=== PATIENT | male | born 1950 | race Caucasian/White ===

== ENCOUNTER → 2017-08-13 | Outpatient (CLI) | payer MEDICARE ==
[~2017-08-13] MED LIST: REGADENOSON 0.4 MG/5 ML SYRINGE ONE
== END ==
LOC: RAD 10:41
PROVIDERS: ATTEND Internal Medicine Cardiovascular Disease
DX: I25.119 Atherosclerotic heart disease of native coronary artery with unspecified angina pectoris (principal); I10 Essential (primary) hypertension; I63.9 Cerebral infarction, unspecified
CPT/HCPCS: 78452; 93017; A9502; J2785

== ENCOUNTER 2017-09-13 09:29 | Emergency (ER) | payer MEDICARE ==
[~2017-09-13] VITALS: Ht 203.2 cm; Wt 111.0 kg
[2017-09-13] MEDS ORDERED: HYDR-3237 PO (10:02)
[2017-09-13] MEDS ORDERED: ALBU2.5V11 NEB (10:02)
[2017-09-13] MEDS ORDERED: PRAS10TA4 PO (10:02)
[2017-09-13] MEDS ORDERED: LOSA1TAB19 PO (10:02)
[2017-09-13] MEDS ORDERED: LEVO200T5 PO (10:02)
[2017-09-13] MEDS ORDERED: ATOR40TA PO (10:02)
[2017-09-13] MEDS ORDERED: GABA300C10 PO (10:02)
[2017-09-13] MEDS ORDERED: OMEP40CA6 PO (10:02)
[2017-09-13] MEDS ORDERED: NITR0.6T4 SL (10:03)
[2017-09-13] MEDS ORDERED: ASPI-515 PO (10:03)
[2017-09-13] MEDS ORDERED: METO25TA35 PO (10:03)
[2017-09-13] MEDS ORDERED: SODIUM CHLORIDE 0.9% 1,000ML IVBOLUS ONE (10:30)
[2017-09-13] MEDS ORDERED: FAMOTIDINE 20 MG/2 ML IVP ONE (10:30)
[2017-09-13] MEDS ORDERED: ONDANSETRON 2MG/ML, 2ML IVPush ONE (10:30)
[2017-09-13] MEDS ORDERED: SODIUM CHLORIDE FLUSH 10ML SYR IVF ONE (10:30)
[2017-09-13 10:36] LABS: BASOPHILS # (AUTO) 0.02 x10^3/uL (0-0.1); BASOPHILS % (AUTO) 0 % (0-1); EOSINOPHILS # (AUTO) 0.51 x10^3/uL (0-0.4); EOSINOPHILS % (AUTO) 6 % (1-7); LYMPHOCYTES # (AUTO) 1.65 x10^3/uL (1-3.4); LYMPHOCYTES % (AUTO) 20 % (22-44); MD NO; MEAN CORPUSCULAR HEMOGLOBIN 31.6 pg (27.5-34.5); MEAN CORPUSCULAR HGB CONC 34.5 g/dL (33.2-36.2); MEAN CORPUSCULAR VOLUME 91.7 fL (81-97); MEAN PLATELET VOLUME 8.9 fL (7.4-10.4); MONOCYTES # (AUTO) 1.43 x10^3/uL (0.2-0.8); MONOCYTES % (AUTO) 18 % (2-9); NEUTROPHILS # (AUTO) 4.49 x10^3/uL (1.8-6.8); NEUTROPHILS % (AUTO) 55 % (42-75); PLATELET COUNT 165 x10^3/uL (130-400); RED BLOOD COUNT 4.97 x10^6/uL (4.38-5.82); RED CELL DISTRIBUTION WIDTH 13.1 % (9.4-14.8)
[2017-09-13 10:50] LABS: ALANINE AMINOTRANSFERASE 42 U/L (12-78); ALBUMIN 3.4 g/dL (3.4-5.0); ANION GAP 5 mmol/L (5-15); CALCIUM 8.4 mg/dL (8.5-10.1); CHLORIDE 110 mmol/L (98-107); CREATININE 1.56 mg/dL (0.7-1.3)
[2017-09-13 10:52] LABS: ALKALINE PHOSPHATASE 82 U/L (45-117); TOTAL PROTEIN 7.2 g/dL (6.4-8.2)
[2017-09-13] MEDS ORDERED: ONDANSETRON 2MG/ML, 2ML ONE (10:54)
[2017-09-13] MEDS ORDERED: FAMOTIDINE 20 MG/2 ML ONE (10:54)
[2017-09-13 11:24] LABS: MICROSCOPIC AUTO
[2017-09-13 11:27] LABS: CULTURE INDICATED? YES
[2017-09-13] MEDS ORDERED: MORPHINE SULFATE 4 MG/ML, 1ML ONE (11:37)
[2017-09-13] MEDS ORDERED: OMNIPAQUE 350 MG/ML, 100ML BOTTLE ONE (11:49)
[2017-09-13] MEDS ORDERED: MORPHINE SULFATE 4 MG/ML, 1ML IVPush ONE (12:00)
[2017-09-13 13:40] LABS: CLOSTRIDIUM DIFFICILE ANTIGEN NEGATIVE; CLOSTRIDIUM DIFFICILE TOXIN NEGATIVE (Negative)
[2017-09-13 14:44] VITALS: BP 126/68
== END 2017-09-13 15:10 | disposition home or self-care (01) ==
LOC: ED 15:00
DX: R11.2 Nausea with vomiting, unspecified (principal); R19.7 Diarrhea, unspecified; I25.10 Atherosclerotic heart disease of native coronary artery without angina pectoris; I25.2 Old myocardial infarction; F17.200 Nicotine dependence, unspecified, uncomplicated; Z86.73 Personal history of transient ischemic attack (TIA), and cerebral infarction without residual deficits
CPT/HCPCS: 36415; 74021; 74177; 80053; 81001; 83690; 85025; 87046; 87086; 87324; 87427; 89055; 96361; 96374; 96375; 99285; J2405; J7030; Q9967; S0028

== ENCOUNTER 2018-08-17 13:08 | Inpatient (IN) | payer MEDICARE ==
[~2018-08-17] VITALS: Ht 203.2 cm; Wt 118.0 kg
[~2018-08-17 13:08] MED LIST changes: +ALBU2.5V11 NEB; +ASPI-515 PO; +ATOR40TA PO; +GABA300C10 PO; +HYDR-3237 PO; +LEVO200T5 PO; +LOSA1TAB19 PO; +METO25TA35 PO; +NITR0.6T4 SL; +OMEP40CA6 PO; +PRAS10TA4 PO; -REGADENOSON 0.4 MG/5 ML SYRINGE ONE
[2018-08-17 13:31] LABS: BASOPHILS # (AUTO) 0.05 x10^3/uL (0-0.1); BASOPHILS % (AUTO) 1 % (0-1); EOSINOPHILS # (AUTO) 0.83 x10^3/uL (0-0.4); EOSINOPHILS % (AUTO) 11 % (1-7); LYMPHOCYTES # (AUTO) 1.48 x10^3/uL (1-3.4); LYMPHOCYTES % (AUTO) 20 % (22-44); MD NO; MEAN CORPUSCULAR HEMOGLOBIN 31.6 pg (27.5-34.5); MEAN CORPUSCULAR HGB CONC 33.4 g/dL (33.2-36.2); MEAN CORPUSCULAR VOLUME 94.6 fL (81-97); MEAN PLATELET VOLUME 8.3 fL (7.4-10.4); MONOCYTES # (AUTO) 0.67 x10^3/uL (0.2-0.8); MONOCYTES % (AUTO) 9 % (2-9); NEUTROPHILS # (AUTO) 4.32 x10^3/uL (1.8-6.8); NEUTROPHILS % (AUTO) 59 % (42-75); PLATELET COUNT 207 x10^3/uL (130-400); RED BLOOD COUNT 4.73 x10^6/uL (4.38-5.82)
--- NOTE | 2018-08-17 13:34 | NUR ---
SEE TRIAGE. PT PLACED ON HEART MONITOR, BP CUFF, PULSE OX. AT BS. PT DESCRIBES PAIN SAME, RATED 6/10. PER EMS, 8/10 RATING PRIOR TO FENTANYL 100 MCG. ASA 324 MG, NTG X 3 ALSO TAKEN SERVICE TECHNICIAN COPIER. PT ALSO REPORT SX OF SOB AND DIZZINESS/LIGHTHEADEDNESS. IV SL IN PLACE, 500 CC SERVICE TECHNICIAN COPIER. CALL LIGHT WITHIN REACH, VSS. EKG DONE ON ARRIVAL, PCXR COMPLETED.
[2018-08-17 13:38] LABS: ALBUMIN 3.5 g/dL (3.4-5.0); ANION GAP 7 mmol/L (5-15); CALCIUM 8.1 mg/dL (8.5-10.1); CHLORIDE 111 mmol/L (98-107); CREATININE 1.44 mg/dL (0.7-1.3)
[2018-08-17] MEDS ORDERED: CLOP75TA52 PO (13:38)
[2018-08-17 13:42] LABS: TROPONIN I < 0.015 ng/mL (0.000-0.045)
--- NOTE | 2018-08-17 13:52 | NUR ---
ALL RESULTS BACK, PT FOR RECHECK.
--- NOTE | 2018-08-17 14:03 | NUR ---
PT SLEEPING, BREATHING SHALLOW AND SLOW, RATE OF 10. PULSE OX AT 88% WHILE ASLEEP, OXYGEN VIA NC AT 2LITERS PLACED. NO CP/PRESSURE AT THIS TIME, PT DROWSY WHEN AROUSED. CALL LIGHT WITHIN REACH, VS UPDATED IN COMPUTER.
--- NOTE | 2018-08-17 15:21 | NUR ---
REPORT TO BENJAMIN RUELAS, PT READY FOR TRANSPORT TO FLOOR.
[2018-08-17 15:47] VITALS: BP 134/83
[2018-08-17] MEDS ORDERED: NITROGLYCERIN 0.4 MG BOTTLE (25 TABS) SL PRN ×2 (18:00)
[2018-08-17] MEDS ORDERED: LABETALOL 5 MG/ML SYRINGE IVPush PRN (18:00)
[2018-08-17] MEDS ORDERED: DOCUSATE 100 MG CAPSULE PO PRN (18:00)
[2018-08-17] MEDS ORDERED: ACETAMINOPHEN 325 MG TABLET PO PRN (18:00)
[2018-08-17] MEDS ORDERED: NITROGLYCERIN 0.4 MG/SPRAY SL PRN (18:00)
[2018-08-17] MEDS ORDERED: morphine SULFATE 10 MG/ML, 1ML IVPush PRN (18:00)
[2018-08-17 18:31] LABS: TROPONIN I < 0.015 ng/mL (0.000-0.045)
[2018-08-17] MEDS ORDERED: ALBUTEROL SULFATE 2.5 MG/3 ML NPPB PRN (19:00)
[2018-08-17] MEDS: ATORVASTATIN 40 MG TABLET PO SCH ×2 (20:26→20:37)
[2018-08-17] MEDS: HEPARIN 5,000 UNITS/ML, 1ML SQ SCH (20:27)
[2018-08-17 21:01] VITALS: BP 139/80
[2018-08-18 00:06] LABS: TROPONIN I < 0.015 ng/mL (0.000-0.045)
[2018-08-18 04:54] VITALS: BP 150/87
[2018-08-18] MEDS: HEPARIN 5,000 UNITS/ML, 1ML SQ SCH ×3 (05:00→21:00)
[2018-08-18 05:06] LABS: BASOPHILS # (AUTO) 0.06 x10^3/uL (0-0.1); BASOPHILS % (AUTO) 1 % (0-1); EOSINOPHILS # (AUTO) 1.06 x10^3/uL (0-0.4); EOSINOPHILS % (AUTO) 12 % (1-7); LYMPHOCYTES # (AUTO) 1.58 x10^3/uL (1-3.4); LYMPHOCYTES % (AUTO) 18 % (22-44); MD NO; MEAN CORPUSCULAR VOLUME 93.7 fL (81-97); MEAN PLATELET VOLUME 7.9 fL (7.4-10.4); MONOCYTES # (AUTO) 1.08 x10^3/uL (0.2-0.8); MONOCYTES % (AUTO) 13 % (2-9); NEUTROPHILS # (AUTO) 4.83 x10^3/uL (1.8-6.8); NEUTROPHILS % (AUTO) 56 % (42-75); PLATELET COUNT 181 x10^3/uL (130-400)
[2018-08-18 05:13] LABS: CALCIUM 7.8 mg/dL (8.5-10.1); CHLORIDE 111 mmol/L (98-107)
[2018-08-18 05:27] LABS: ALANINE AMINOTRANSFERASE 29 U/L (12-78); ALBUMIN 3.1 g/dL (3.4-5.0); ALKALINE PHOSPHATASE 90 U/L (45-117); BILIRUBIN,TOTAL 0.4 mg/dL (0.2-1.0); TOTAL PROTEIN 6.1 g/dL (6.4-8.2)
[2018-08-18] MEDS ORDERED: LEVOTHYROXINE 100 MCG TABLET ONE (05:32)
[2018-08-18 05:37] LABS: ANION GAP 5 mmol/L (5-15)
[2018-08-18] MEDS ORDERED: LEVOTHYROXINE 175 MCG TABLET ONE (05:43)
[2018-08-18] MEDS: LEVOTHYROXINE 200 MCG TABLET PO SCH (05:45)
[2018-08-18] MEDS: OMEPRAZOLE 20 MG CAPSULE.DR PO SCH (05:51)
[2018-08-18 07:54] VITALS: BP 143/87
[2018-08-18] MEDS ORDERED: REGADENOSON 0.4 MG/5 ML SYRINGE ONE (08:43)
[2018-08-18] MEDS ORDERED: HYDROCHLOROTHIAZIDE 12.5 MG CAPSULE PO SCH (09:00)
[2018-08-18] MEDS ORDERED: LOSARTAN 50MG TABLET PO SCH (09:00)
[2018-08-18] MEDS: CLOPIDOGREL 75 MG TABLET PO SCH (10:57)
[2018-08-18] MEDS: GABAPENTIN 300 MG CAPSULE PO SCH (10:57)
[2018-08-18] MEDS: ASPIRIN 81 MG TABLET EC PO SCH (10:58)
[2018-08-18] MEDS: METOPROLOL TARTRATE 25 MG TABLET PO SCH (10:58)
[2018-08-18] MEDS: ATORVASTATIN 40 MG TABLET PO SCH (11:01)
[2018-08-18] MEDS: PANTOPROZOLE 40MG TABLET PO SCH (13:30)
[2018-08-18 13:45] VITALS: BP 130/74
[2018-08-18 19:30] VITALS: BP 138/81
[2018-08-19 03:40] VITALS: BP 137/79
[2018-08-19] MEDS: HEPARIN 5,000 UNITS/ML, 1ML SQ SCH ×2 (05:00→12:20)
[2018-08-19 05:49] LABS: BASOPHILS # (AUTO) 0.06 x10^3/uL (0-0.1); BASOPHILS % (AUTO) 1 % (0-1); EOSINOPHILS # (AUTO) 1.03 x10^3/uL (0-0.4); EOSINOPHILS % (AUTO) 11 % (1-7); LYMPHOCYTES # (AUTO) 1.55 x10^3/uL (1-3.4); LYMPHOCYTES % (AUTO) 16 % (22-44); MD NO; MEAN CORPUSCULAR HGB CONC 32.8 g/dL (33.2-36.2); MEAN CORPUSCULAR VOLUME 94.5 fL (81-97); MEAN PLATELET VOLUME 8.5 fL (7.4-10.4); MONOCYTES # (AUTO) 1.23 x10^3/uL (0.2-0.8); MONOCYTES % (AUTO) 13 % (2-9); NEUTROPHILS # (AUTO) 5.88 x10^3/uL (1.8-6.8); NEUTROPHILS % (AUTO) 60 % (42-75); PLATELET COUNT 182 x10^3/uL (130-400); RED BLOOD COUNT 4.73 x10^6/uL (4.38-5.82); RED CELL DISTRIBUTION WIDTH 12.5 % (9.4-14.8)
[2018-08-19 05:57] LABS: ALBUMIN 3.3 g/dL (3.4-5.0); ANION GAP 6 mmol/L (5-15); CALCIUM 8.6 mg/dL (8.5-10.1); CHLORIDE 108 mmol/L (98-107); CREATININE 1.49 mg/dL (0.7-1.3)
[2018-08-19] MEDS: PANTOPROZOLE 40MG TABLET PO SCH ×2 (06:00→06:16)
[2018-08-19] MEDS: LEVOTHYROXINE 200 MCG TABLET PO SCH (06:16)
[2018-08-19] MEDS: OMEPRAZOLE 20 MG CAPSULE.DR PO SCH (06:18)
[2018-08-19 07:21] VITALS: BP 143/79
[2018-08-19] MEDS ORDERED: LOSARTAN 50MG TABLET PO SCH (09:00)
[2018-08-19] MEDS ORDERED: NITROGLYCERIN 5 MG/ML, 10ML ONE ×2 (10:41→11:02)
[2018-08-19] MEDS ORDERED: TICAGRELOR 90 MG TABLET ONE ×2 (10:41→11:02)
[2018-08-19] MEDS ORDERED: BIVALIRUDIN 250 MG ONE (10:41)
[2018-08-19] MEDS ORDERED: VERAPAMIL 2.5 MG/ML, 2ML ONE ×2 (10:41→11:02)
[2018-08-19] MEDS ORDERED: LIDOCAINE 2%, 20ML ONE ×2 (10:41→11:02)
[2018-08-19] MEDS ORDERED: HEPARIN 1,000 UNITS/ML, 10ML ONE (10:41)
[2018-08-19] MEDS ORDERED: FENTANYL PF 100 MCG/2ML ONE ×2 (10:41→11:01)
[2018-08-19] MEDS ORDERED: MIDAZOLAM 1 MG/ML, 5ML ONE ×2 (10:41→11:01)
[2018-08-19] MEDS ORDERED: SODIUM CHLORIDE 0.9% 1,000 ML IV SCH (11:39)
[2018-08-19] MEDS: ASPIRIN 81 MG TABLET EC PO SCH (12:19)
[2018-08-19] MEDS: METOPROLOL TARTRATE 25 MG TABLET PO SCH (12:19)
[2018-08-19] MEDS: CLOPIDOGREL 75 MG TABLET PO SCH (12:19)
[2018-08-19] MEDS: ATORVASTATIN 40 MG TABLET PO SCH (12:19)
[2018-08-19] MEDS: GABAPENTIN 300 MG CAPSULE PO SCH (12:19)
[2018-08-19 12:56] VITALS: BP 107/69
== END 2018-08-19 16:35 | disposition home or self-care (01) | DRG 287 ==
LOC: ED 14:19 → EDIP 14:58 → 5SO 15:35 → DCLOUNGE 08-19 16:22
PROVIDERS: ADMIT Internal Medicine; ATTEND Internal Medicine
PROC: 4A023N7 Measurement of Cardiac Sampling and Pressure, Left Heart, Percutaneous Approach (ICD-10-PCS; principal; 2018-08-19)
PROC: B2111ZZ Fluoroscopy of Multiple Coronary Arteries using Low Osmolar Contrast (ICD-10-PCS; 2018-08-19)
PROC: B2151ZZ Fluoroscopy of Left Heart using Low Osmolar Contrast (ICD-10-PCS; 2018-08-19)
DX: I25.110 Atherosclerotic heart disease of native coronary artery with unstable angina pectoris (principal); I69.351 Hemiplegia and hemiparesis following cerebral infarction affecting right dominant side; N17.9 Acute kidney failure, unspecified; E78.5 Hyperlipidemia, unspecified; E89.0 Postprocedural hypothyroidism; F17.210 Nicotine dependence, cigarettes, uncomplicated; N18.3 Chronic kidney disease, stage 3 (moderate); R73.01 Impaired fasting glucose; I12.9 Hypertensive chronic kidney disease with stage 1 through stage 4 chronic kidney disease, or unspecified chronic kidney disease; I25.2 Old myocardial infarction; Z79.82 Long term (current) use of aspirin; Z79.899 Other long term (current) drug therapy; Z85.850 Personal history of malignant neoplasm of thyroid; Z95.5 Presence of coronary angioplasty implant and graft; Z90.49 Acquired absence of other specified parts of digestive tract; Z90.89 Acquired absence of other organs; Z79.51 Long term (current) use of inhaled steroids; Z88.8 Allergy status to other drugs, medicaments and biological substances
CPT/HCPCS: 36415; 71045; 78452; 80048; 80053; 82040; 83735; 83880; 84100; 84443; 84484; 85025; 93005; 93017; 93458; 99156; 99285; C1769; C1894; G0378; J0583; J1644; J2250; J2785; J3010; A9502; C9898; Q9967

== ENCOUNTER 2019-10-18 20:09 | Observation (INO) | payer MEDICARE ==
[~2019-10-18] VITALS: Ht 203.2 cm; Wt 117.3 kg
[~2019-10-18 20:09] MED LIST changes: +CLOP75TA52 PO; +OMEP40CA42 PO; -OMEP40CA6 PO
--- NOTE | 2019-10-18 21:45 | NUR ---
Patient presents to ER c/o dizziness and lightheadedness since 1100 this am. Patient currently states he is lightheaded. Orthostatic vitals performed; patient's condition did not change during position changes. Patient is in NAD. REspirations even and unlabored.
[2019-10-18 22:22] LABS: BASOPHILS # (AUTO) 0.05 x10^3/uL (0-0.1); BASOPHILS % (AUTO) 1 % (0-1); EOSINOPHILS # (AUTO) 0.82 x10^3/uL (0-0.4); EOSINOPHILS % (AUTO) 11 % (1-7); LYMPHOCYTES # (AUTO) 2.14 x10^3/uL (1-3.4); LYMPHOCYTES % (AUTO) 28 % (22-44); MD NO; MEAN CORPUSCULAR HEMOGLOBIN 30.9 pg (27.5-34.5); MEAN CORPUSCULAR HGB CONC 33.5 g/dL (33.2-36.2); MEAN CORPUSCULAR VOLUME 92.2 fL (81-97); MEAN PLATELET VOLUME 8.4 fL (7.4-10.4); MONOCYTES # (AUTO) 0.95 x10^3/uL (0.2-0.8); MONOCYTES % (AUTO) 13 % (2-9); NEUTROPHILS # (AUTO) 3.58 x10^3/uL (1.8-6.8); NEUTROPHILS % (AUTO) 48 % (42-75); PLATELET COUNT 199 x10^3/uL (130-400); RED BLOOD COUNT 4.62 x10^6/uL (4.38-5.82); RED CELL DISTRIBUTION WIDTH 13.4 % (9.4-14.8)
[2019-10-18 22:31] LABS: ALANINE AMINOTRANSFERASE 28 U/L (12-78); ALBUMIN 3.3 g/dL (3.4-5.0); ANION GAP 5 mmol/L (5-15); CALCIUM 8.1 mg/dL (8.5-10.1); CHLORIDE 111 mmol/L (98-107); CREATININE 1.46 mg/dL (0.7-1.3)
[2019-10-18 22:36] LABS: ALKALINE PHOSPHATASE 81 U/L (45-117); BILIRUBIN,TOTAL 0.4 mg/dL (0.2-1.0); TOTAL PROTEIN 6.3 g/dL (6.4-8.2); TROPONIN I < 0.015 ng/mL (0.000-0.045)
[2019-10-18] MEDS ORDERED: ONDANSETRON 2MG/ML, 2ML ONE (23:12)
[2019-10-18] MEDS ORDERED: MORPHINE SULFATE 4 MG/ML, 1ML ONE (23:12)
--- NOTE | 2019-10-18 23:26 | NUR ---
Patient to CT.
[2019-10-18] MEDS ORDERED: OMNIPAQUE 350 MG/ML, 100ML BOTTLE ONE (23:47)
[2019-10-19] VITALS (9 sets, daily range): BP systolic 114–151; BP diastolic 72–103
[2019-10-19] MEDS ORDERED: ONDANSETRON 2MG/ML, 2ML IVPush ONE
[2019-10-19] MEDS ORDERED: MORPHINE SULFATE 4 MG/ML, 1ML IVPush PRN
[2019-10-19] MEDS ORDERED: POLYETHYLENE GLYCOL 17 GM PACKET PO PRN (01:30)
[2019-10-19] MEDS ORDERED: ACETAMINOPHEN 325 MG TABLET PO PRN (01:30)
[2019-10-19] MEDS ORDERED: SCOPOLAMINE 1MG PATCH TD SCH (01:30)
[2019-10-19] MEDS: HEPARIN 5,000 UNITS/ML, 1ML SQ SCH ×3 (01:30→17:30)
[2019-10-19] MEDS ORDERED: MECLIZINE 25 MG TABLET PO PRN (01:30)
[2019-10-19] MEDS ORDERED: DOCUSATE 100 MG CAPSULE PO PRN (01:30)
[2019-10-19] MEDS ORDERED: BUTALB/APAP/CAFFEINE 50MG/325MG/40MG PO PRN (01:30)
[2019-10-19] MEDS ORDERED: ENALAPRILAT 1.25 MG/ML, 2ML IVPush PRN (01:30)
[2019-10-19] MEDS ORDERED: ONDANSETRON ODT 4 MG PO PRN (01:30)
[2019-10-19] MEDS ORDERED: DIAZEPAM 10 MG TABLET PO PRN (08:30)
[2019-10-19] MEDS: GABAPENTIN 300 MG CAPSULE PO SCH (08:59)
[2019-10-19] MEDS: CLOPIDOGREL 75 MG TABLET PO SCH (08:59)
[2019-10-19] MEDS: OMEPRAZOLE 20 MG CAPSULE.DR PO SCH (08:59)
[2019-10-19] MEDS: NICOTINE 14MG/24 HR PATCH.TD24 TD SCH (09:00)
[2019-10-19] MEDS ORDERED: LEVOTHYROXINE 200 MCG TABLET PO SCH (09:00)
[2019-10-19] MEDS: LEVOTHYROXINE 175 MCG TABLET PO SCH (09:22)
[2019-10-19 10:06] LABS: ANION GAP 5 mmol/L (5-15); CHLORIDE 112 mmol/L (98-107); CHOLESTEROL, TOTAL 102 mg/dL (140-239); CREATININE 1.36 mg/dL (0.7-1.3)
[2019-10-19 10:16] LABS: CHOL/HDL RATIO 2.5; HDL CHOL % 40 % (26-37); HDL CHOLESTEROL (DIRECT) 41 mg/dL (40-60); LDL CHOLESTEROL,CALCULATED 35 mg/dL (54-169); LDL/HDL RATIO 0.9 (0.5-3.0); TRIGLYCERIDES 131 mg/dL (50-200); VLDL CHOLESTEROL 26 mg/dL (0-25)
[2019-10-19] MEDS: ASPIRIN 81 MG TABLET EC PO SCH (11:29)
[2019-10-19] MEDS ORDERED: FENTANYL PF 100 MCG/2ML ONE (14:43)
[2019-10-19] MEDS ORDERED: NALOXONE 1 MG/ML, 2ML ONE (14:43)
[2019-10-19] MEDS ORDERED: MIDAZOLAM 1 MG/ML, 5ML ONE (14:43)
[2019-10-19] MEDS ORDERED: FLUMAZENIL 0.1 MG/1 ML, 5ML ONE (14:43)
[2019-10-19] MEDS ORDERED: ATORVASTATIN 40 MG TABLET PO SCH (21:00)
[2019-10-20 00:24] VITALS: BP 138/79
[2019-10-20] MEDS: HEPARIN 5,000 UNITS/ML, 1ML SQ SCH ×2 (01:30→08:20)
[2019-10-20] MEDS: LEVOTHYROXINE 175 MCG TABLET PO SCH (05:50)
[2019-10-20 06:36] LABS: ANION GAP 5 mmol/L (5-15); CHLORIDE 113 mmol/L (98-107); CREATININE 1.26 mg/dL (0.7-1.3)
[2019-10-20 07:30] VITALS: BP 137/80
[2019-10-20] MEDS: OMEPRAZOLE 20 MG CAPSULE.DR PO SCH (08:18)
[2019-10-20] MEDS: GABAPENTIN 300 MG CAPSULE PO SCH (08:18)
[2019-10-20] MEDS: CLOPIDOGREL 75 MG TABLET PO SCH (08:18)
[2019-10-20] MEDS: ASPIRIN 81 MG TABLET EC PO SCH (08:18)
[2019-10-20] MEDS: NICOTINE 14MG/24 HR PATCH.TD24 TD SCH (08:19)
[2019-10-20 12:23] VITALS: BP 151/82
[2019-10-20] MEDS ORDERED: MECL-101 PO (13:50)
[2019-10-20] MEDS ORDERED: LEVO200T PO (14:48)
== END 2019-10-20 15:06 | disposition home or self-care (01) ==
LOC: ED 22:35 → INTOOBSV 10-19 00:35 → EDIP 10-19 00:35 → 4WST 10-19 01:44 → DCLOUNGE 10-20 15:02
PROVIDERS: ADMIT Family Medicine; ATTEND Family Medicine
DX: R42 Dizziness and giddiness (principal); F40.240 Claustrophobia; G44.209 Tension-type headache, unspecified, not intractable; I25.10 Atherosclerotic heart disease of native coronary artery without angina pectoris; I12.9 Hypertensive chronic kidney disease with stage 1 through stage 4 chronic kidney disease, or unspecified chronic kidney disease; N18.9 Chronic kidney disease, unspecified; M79.2 Neuralgia and neuritis, unspecified; K21.9 Gastro-esophageal reflux disease without esophagitis; F17.210 Nicotine dependence, cigarettes, uncomplicated; E89.0 Postprocedural hypothyroidism; I25.2 Old myocardial infarction; Z86.73 Personal history of transient ischemic attack (TIA), and cerebral infarction without residual deficits; Z85.850 Personal history of malignant neoplasm of thyroid; Z79.82 Long term (current) use of aspirin; Z79.899 Other long term (current) drug therapy; Z95.5 Presence of coronary angioplasty implant and graft; Z91.14 Patient's other noncompliance with medication regimen; Z91.19 Patient's noncompliance with other medical treatment and regimen; Z79.890 Hormone replacement therapy
CPT/HCPCS: 36415; 70450; 70496; 70498; 70551; 80048; 80053; 80061; 83036; 84443; 84484; 85025; 93005; 93306; 96372; 96374; 96375; 97162; 97165; 99285; G0378; J1644; J2250; J2270; J2405; J3010; Q9967; J2310

== ENCOUNTER → 2019-12-05 | Outpatient (CLI) | payer MEDICARE ==
[~2019-12-05] MED LIST changes: +LEVO200T PO; +MECL-101 PO; +REGADENOSON 0.4 MG/5 ML SYRINGE ONE
== END | disposition home or self-care (01) ==
LOC: CFH 11:57
PROVIDERS: ATTEND Registered Nurse
DX: I65.23 Occlusion and stenosis of bilateral carotid arteries (principal); I21.19 ST elevation (STEMI) myocardial infarction involving other coronary artery of inferior wall; I10 Essential (primary) hypertension; I25.119 Atherosclerotic heart disease of native coronary artery with unspecified angina pectoris
CPT/HCPCS: 78452; 93017; 93880; A9502; J2785